=== PATIENT | male | born 1995 | race Caucasian/White ===

== ENCOUNTER 2016-11-05 06:21 | Emergency (ER) | payer SELFPAY ==
[~2016-11-05] VITALS: Ht 167.6 cm; Wt 65.0 kg
[2016-11-05 06:22] VITALS: BP 133/75; PULSE 87; RESP 16; TEMP 99.2; O2SAT 98
[2016-11-05] MEDS ORDERED: SODIUM CHLOR 0.9% 1000 ML INJ 1,000 ML IV SCH (06:35)
--- NOTE | 2016-11-05 06:41 | PD ---
HPI Chief Complaint: Abdominal Pain Time Seen by Provider: 06:35 Travel History International Travel<30 days: No Contact w/Intl Traveler<30days: No Traveled to known affect area: No History of Present Illness HPI 21-year-old male complains of abdominal pain and diarrhea. Patient states the symptoms started last night. Patient states that the abdominal pain cramping pain persistent pain diffuse over the abdomen. Patient denies any pain radiation. Patient denies any dysuria or frequency. Patient denies any back pain. Patient denies any blood or mucus in the stool. PFSH Social History Tobacco Use: No Allergies-Medications (Allergen,Severity, Reaction): Coded Allergies: No Known Allergies (Unverified , 11/05/16) Reported Meds & Prescriptions Reported Meds & Active Scripts Active Zofran Odt (Ondansetron Odt) 4 Mg Tab 4 Mg SL Q6HR PRN Review of Systems General / Constitutional: No: Fever Eyes: No: Visual changes HENT: No: Headaches Cardiovascular: No: Chest Pain or Discomfort Respiratory: No: Shortness of Breath Gastrointestinal: Positive: Diarrhea, Abdominal Pain Genitourinary: No: Dysuria Musculoskeletal: No: Pain Skin: No Rash Neurologic: No: Weakness Psychiatric: No: Depression Endocrine: No: Polydipsia Hematologic/Lymphatic: No: Easy Bruising Physical Exam Narrative GENERAL: Well-nourished, well-developed patient. SKIN: Focused skin assessment warm/dry. HEAD: Normocephalic. EYES: No scleral icterus. No injection or drainage. NECK: Supple, trachea midline. No JVD or lymphadenopathy. CARDIOVASCULAR: Regular rate and rhythm without murmurs, gallops, or rubs. RESPIRATORY: Breath sounds equal bilaterally. No accessory muscle use. GASTROINTESTINAL: Abdomen soft, nondistended. Patient has moderate tenderness on palpation right lower quadrant of the abdomen. No rebound tenderness. No mass. MUSCULOSKELETAL: No cyanosis, or edema. BACK: Nontender without obvious deformity. No CVA tenderness. Data Data Last Documented VS Vital Signs Date Time Temp Pulse Resp B/P Pulse Ox O2 Delivery O2 Flow Rate FiO2 11/05/16 09:07 78 18 124/76 98 11/05/16 06:44 Room Air 11/05/16 06:22 99.2 Orders Complete Blood Count With Diff (11/05/16 06:35) Comprehensive Metabolic Panel (11/05/16 06:35) Urinalysis - C+S If Indicated (11/05/16 06:35) Ct Abd/Pel W Iv Contrast(Rout) (11/05/16 06:35) Iv Access Insert/Monitor (11/05/16 06:35) Ecg Monitoring (11/05/16 06:35) Oximetry (11/05/16 06:35) Ondansetron Inj (Zofran Inj) (11/05/16 06:45) Pantoprazole Inj (Protonix Inj) (11/05/16 06:45) Sodium Chlor 0.9% 1000 Ml Inj (Ns 1000 M (11/05/16 06:35) Dicyclomine Inj (Bentyl Inj) (11/05/16 06:45) Iohexol 350 Inj (Omnipaque 350 Inj) (11/05/16 08:29) Labs Laboratory Tests Test 11/05/16 11/05/16 06:40 07:15 White Blood Count 18.5 TH/MM3 Red Blood Count 4.78 MIL/MM3 Hemoglobin 14.1 GM/DL Hematocrit 41.2 % Mean Corpuscular Volume 86.3 FL Mean Corpuscular Hemoglobin 29.6 PG Mean Corpuscular Hemoglobin 34.3 % Concent Red Cell Distribution Width 13.4 % Platelet Count 296 TH/MM3 Mean Platelet Volume 9.2 FL Neutrophils (%) (Auto) 84.8 % Lymphocytes (%) (Auto) 6.3 % Monocytes (%) (Auto) 8.7 % Eosinophils (%) (Auto) 0.2 % Basophils (%) (Auto) 0.0 % Neutrophils # (Auto) 15.7 TH/MM3 Lymphocytes # (Auto) 1.2 TH/MM3 Monocytes # (Auto) 1.6 TH/MM3 Eosinophils # (Auto) 0.0 TH/MM3 Basophils # (Auto) 0.0 TH/MM3 CBC Comment AUTO DIFF Differential Total Cells 100 Counted Neutrophils % (Manual) 72 % Band Neutrophils % 6 % Lymphocytes % 10 % Monocytes % 12 % Neutrophils # (Manual) 14.4 TH/MM3 Differential Comment FINAL DIFF MANUAL Platelet Estimate NORMAL Platelet Morphology Comment NORMAL Red Cell Morphology Comment NORMAL Sodium Level 138 MEQ/L Potassium Level 4.4 MEQ/L Chloride Level 104 MEQ/L Carbon Dioxide Level 28.1 MEQ/L Anion Gap 6 MEQ/L Blood Urea Nitrogen 15 MG/DL Creatinine 0.93 MG/DL Estimat Glomerular Filtration 102 ML/MIN Rate Random Glucose 90 MG/DL Calcium Level 9.1 MG/DL Total Bilirubin 0.6 MG/DL Aspartate Amino Transf 41 U/L (AST/SGOT) Alanine Aminotransferase 48 U/L (ALT/SGPT) Alkaline Phosphatase 68 U/L Total Protein 8.0 GM/DL Albumin 3.9 GM/DL Urine Color YELLOW Urine Turbidity CLEAR Urine pH 5.5 Urine Specific [place] 1.025 Urine Protein NEG mg/dL Urine Glucose (UA) NEG mg/dL Urine Ketones NEG mg/dL Urine Occult Blood SMALL Urine Nitrite NEG Urine Bilirubin NEG Urine Urobilinogen LESS THAN 2.0 MG/DL Urine Leukocyte Esterase NEG Urine RBC 1 /hpf Urine WBC 1 /hpf Urine Squamous Epithelial <1 /hpf Cells Urine Mucus FEW /lpf Microscopic Urinalysis Comment CULT NOT INDICATED MDM Medical Decision Making Medical Screen Exam Complete: Yes Emergency Medical Condition: Yes Differential Diagnosis Differential diagnosis including gastroenteritis, appendicitis, UTI, pyelonephritis, nephrolithiasis. Narrative Course 21-year-old male with right lower quadrant abdominal pain and diarrhea. Normal saline solution 1 25 cc an hour. Protonix 40 mg IV. Bentyl 20 mg IM. Zofran 4 mg IV. Scripts Ondansetron Odt (Zofran Odt)4 Mg Tab4 Mg SL Q6HR PRN (Nausea/Vomiting) #7 TAB Ref 0 Prov:Donta Reinoso MD 11/05/16 Larry Hess MD November 05, 2016 06:40
[2016-11-05 06:44] VITALS: RESP 16; O2SAT 99
[2016-11-05] MEDS ORDERED: DICYCLOMINE HCL 20 MG/2 ML VIAL IM ONE (06:45)
[2016-11-05] MEDS ORDERED: PANTOPRAZOLE SODIUM 40 MG VIAL IVP ONE (06:45)
[2016-11-05] MEDS ORDERED: ONDANSETRON HCL 4 MG/2 ML VIAL IVP ONE (06:45)
[2016-11-05 07:02] LABS: AUTOMATED NEUTROPHIL # 15.7 TH/MM3 (1.8-7.7); EOSINOPHIL % 0.2 % (0.0-4.0); HEMATOCRIT 41.2 % (39.0-51.0); LYMPH % 6.3 % (9.0-44.0); LYMPHOCYTE # 1.2 TH/MM3 (1.0-4.8); MEAN CELL VOLUME 86.3 FL (80.0-100.0); MEAN CORPUSCULAR HEMOGLOBIN 29.6 PG (27.0-34.0); MEAN CORPUSCULAR HGB CONC 34.3 % (32.0-36.0); MONO % 8.7 % (0.0-8.0); NEUT % 84.8 % (16.0-70.0); PLATELET COUNT 296 TH/MM3 (150-450); RED BLOOD COUNT 4.78 MIL/MM3 (4.50-5.90); RED CELL DISTRIBUTION WIDTH 13.4 % (11.6-17.2); WHITE BLOOD COUNT 18.5 TH/MM3 (4.0-11.0)
[2016-11-05 07:13] LABS: ALKALINE PHOSPHATASE 68 U/L (45-117); TOTAL BILIRUBIN ADULT 0.6 MG/DL (0.2-1.0)
[2016-11-05 07:16] LABS: HEMO FLAGS AUTO DIFF
[2016-11-05 07:19] LABS: ALT (GPT) 48 U/L (12-78); ANION GAP 6 MEQ/L (5-15); AST (GOT) 41 U/L (15-37); BICARBONATE 28.1 MEQ/L (21.0-32.0); BLOOD UREA NITROGEN 15 MG/DL (7-18); CHLORIDE 104 MEQ/L (98-107); GLOMERULAR FILTRATION RATE 102 ML/MIN (>89); SODIUM (NA) 138 MEQ/L (136-145)
[2016-11-05 07:20] LABS: POTASSIUM 4.4 MEQ/L (3.5-5.1)
[2016-11-05 07:33] LABS: BLOOD, URINE SMALL (NEG); GLUCOSE,URINE NEG (NEG); KETONE, URINE NEG (NEG); MUCUS URINE FEW /lpf (OCC); NITRITE,URINE NEG (NEG); PH, URINE 5.5 (5.0-8.5); SQUAMOUS EPITHELIAL CELL URINE <1 /hpf (0-5); URINE COLOR YELLOW (YELLW/STRAW)
[2016-11-05 07:35] LABS: COMMENT (UR) CULT NOT INDICATED; CULTURE IF INDICATED CULT NOT INDICATED
[2016-11-05 07:43] LABS: BANDS 6 % (0-6); NEUTROPHIL # MANUAL DIFF 14.4 TH/MM3 (1.8-7.7); POLYS (SEG NEUTROPHILS) 72 % (16-70); WBC DIFF SAMPLE 100
[2016-11-05 07:44] LABS: PLATELET ESTIMATE SMEAR NORMAL (NORMAL); PLATELET MORPHOLOGY NORMAL (NORMAL); SCAN/DIFF FINAL DIFF MANUAL
[2016-11-05] MEDS ORDERED: IOHEXOL 350 MG/ML 10 ML VIAL (for RAD DIAG) IV ONE (08:29)
--- NOTE | 2016-11-05 08:42 | RADRPT ---
EXAM DATE/TIME: 11/05/2016 08:09 [facility] COMPARISON: No previous studies available for comparison. INDICATIONS : Right lower quadrant pain, nausea, diarrhea. IV CONTRAST: 94 cc Omnipaque 350 (iohexol) IV ORAL CONTRAST: No oral contrast ingested. RADIATION DOSE: 7.57 CTDIvol (mGy) MEDICAL HISTORY : None SURGICAL HISTORY : None. ENCOUNTER: Initial ACUITY: 1 day PAIN SCALE: 6/10 LOCATION: TECHNIQUE: Volumetric scanning of the abdomen and pelvis was performed. Using automated exposure control and ad justment of the mA and/or kV according to patient size, radiation dose was kept as low as reasonably achievable to obtain optimal diagnostic quality images. FINDINGS: LOWER LUNGS: The visualized lower lungs are clear. LIVER: Homogeneous density without lesion. There is no dilation of the biliary tree. No calcified gallston es. SPLEEN: Normal size without lesion. PANCREAS: Within normal limits. KIDNEYS: Normal in size and shape. There is no mass, stone or hydronephrosis. ADRENAL GLANDS: Within normal limits. VASCULAR: There is no aortic aneurysm. BOWEL/MESENTERY: No free intraperitoneal air or fluid. Retrocecal appendix is radiographically normal. There is some m inimal stranding and bowel wall thickening in the mid ascending colon characteristic of a very mild, nonspecific colitis. ABDOMINAL WALL: Within normal limits. RETROPERITONEUM: There is no lymphadenopathy. BLADDER: No wall thickening or mass. REPRODUCTIVE: Within normal limits. INGUINAL: There is no lymphadenopathy or hernia. MUSCULOSKELETAL: Within normal limits for patient age. CONCLUSION: 1. Patient's symptoms may be due to a very mild, nonspecific colitis in the mid ascending colon with some regional bowel wall thickening and pericolonic fatty stranding. 2. Otherwise negative. Patient has a retrocecal appendix which is radiographically normal. Efraín Pena MD on November 05, 2016 at 8:32 Board Certified Radiologist. This report was verified electronically.
[2016-11-05] MEDS ORDERED: ZOFR4TAB3 SL (08:53)
--- NOTE | 2016-11-05 08:53 | PD ---
Physical Exam Date Seen by Provider: November 05, 2016 Time Seen by Provider: 07:00 Narrative Patient initially seen by Dr. Hess, please see previous notes for further information. Signed out to me at 7 AM awaiting CAT scan workup. Apparently has been having diarrhea with nausea and vomiting. Laboratory Tests Test 11/05/16 11/05/16 06:40 07:15 White Blood Count 18.5 TH/MM3 (4.0-11.0) Neutrophils (%) (Auto) 84.8 % (16.0-70.0) Lymphocytes (%) (Auto) 6.3 % (9.0-44.0) Monocytes (%) (Auto) 8.7 % (0.0-8.0) Neutrophils # (Auto) 15.7 TH/MM3 (1.8-7.7) Monocytes # (Auto) 1.6 TH/MM3 (0-0.9) Neutrophils % (Manual) 72 % (16-70) Monocytes % 12 % (0-8) Neutrophils # (Manual) 14.4 TH/MM3 (1.8-7.7) Aspartate Amino Transf 41 U/L (15-37) (AST/SGOT) Urine Occult Blood SMALL (NEG) Urine Mucus FEW /lpf (OCC) Last 24 hours Impressions Abdomen/Pelvis CT 11/05/16 0635 Signed Impressions: Service Date/Time: Saturday, November 05, 2016 08:09 - CONCLUSION: 1. Patient's symptoms may be due to a very mild, nonspecific colitis in the mid ascending colon with some regional bowel wall thickening and pericolonic fatty stranding. 2. Otherwise negative. Patient has a retrocecal appendix which is radiographically normal. Efraín Pena MD Lab work did not indicate significant dehydration or electrolyte abnormalities. He does have leukocytosis. CAT scan shows a normal appendix and appears that he may have some underlying colitis which is consistent with symptoms as well. On reevaluation at 8:50 AM, he is feeling improved, no longer vomiting and pain has subsided. At this point, my plan would be to release him with follow-up to primary care physician. We will give him symptomatic relief or nausea or vomiting. The plan was discussed with the patient and he states understanding. Data Data Last Documented VS Vital Signs Date Time Temp Pulse Resp B/P Pulse Ox O2 Delivery O2 Flow Rate FiO2 11/05/16 06:44 16 99 Room Air 11/05/16 06:22 99.2 87 133/75 Orders Complete Blood Count With Diff (11/05/16 06:35) Comprehensive Metabolic Panel (11/05/16 06:35) Urinalysis - C+S If Indicated (11/05/16 06:35) Ct Abd/Pel W Iv Contrast(Rout) (11/05/16 06:35) Iv Access Insert/Monitor (11/05/16 06:35) Ecg Monitoring (11/05/16 06:35) Oximetry (11/05/16 06:35) Ondansetron Inj (Zofran Inj) (11/05/16 06:45) Pantoprazole Inj (Protonix Inj) (11/05/16 06:45) Sodium Chlor 0.9% 1000 Ml Inj (Ns 1000 M (11/05/16 06:35) Dicyclomine Inj (Bentyl Inj) (11/05/16 06:45) Iohexol 350 Inj (Omnipaque 350 Inj) (11/05/16 08:29) Labs Laboratory Tests Test 11/05/16 11/05/16 06:40 07:15 White Blood Count 18.5 TH/MM3 Red Blood Count 4.78 MIL/MM3 Hemoglobin 14.1 GM/DL Hematocrit 41.2 % Mean Corpuscular Volume 86.3 FL Mean Corpuscular Hemoglobin 29.6 PG Mean Corpuscular Hemoglobin 34.3 % Concent Red Cell Distribution Width 13.4 % Platelet Count 296 TH/MM3 Mean Platelet Volume 9.2 FL Neutrophils (%) (Auto) 84.8 % Lymphocytes (%) (Auto) 6.3 % Monocytes (%) (Auto) 8.7 % Eosinophils (%) (Auto) 0.2 % Basophils (%) (Auto) 0.0 % Neutrophils # (Auto) 15.7 TH/MM3 Lymphocytes # (Auto) 1.2 TH/MM3 Monocytes # (Auto) 1.6 TH/MM3 Eosinophils # (Auto) 0.0 TH/MM3 Basophils # (Auto) 0.0 TH/MM3 CBC Comment AUTO DIFF Differential Total Cells 100 Counted Neutrophils % (Manual) 72 % Band Neutrophils % 6 % Lymphocytes % 10 % Monocytes % 12 % Neutrophils # (Manual) 14.4 TH/MM3 Differential Comment FINAL DIFF MANUAL Platelet Estimate NORMAL Platelet Morphology Comment NORMAL Red Cell Morphology Comment NORMAL Sodium Level 138 MEQ/L Potassium Level 4.4 MEQ/L Chloride Level 104 MEQ/L Carbon Dioxide Level 28.1 MEQ/L Anion Gap 6 MEQ/L Blood Urea Nitrogen 15 MG/DL Creatinine 0.93 MG/DL Estimat Glomerular Filtration 102 ML/MIN Rate Random Glucose 90 MG/DL Calcium Level 9.1 MG/DL Total Bilirubin 0.6 MG/DL Aspartate Amino Transf 41 U/L (AST/SGOT) Alanine Aminotransferase 48 U/L (ALT/SGPT) Alkaline Phosphatase 68 U/L Total Protein 8.0 GM/DL Albumin 3.9 GM/DL Urine Color YELLOW Urine Turbidity CLEAR Urine pH 5.5 Urine Specific [place] 1.025 Urine Protein NEG mg/dL Urine Glucose (UA) NEG mg/dL Urine Ketones NEG mg/dL Urine Occult Blood SMALL Urine Nitrite NEG Urine Bilirubin NEG Urine Urobilinogen LESS THAN 2.0 MG/DL Urine Leukocyte Esterase NEG Urine RBC 1 /hpf Urine WBC 1 /hpf Urine Squamous Epithelial <1 /hpf Cells Urine Mucus FEW /lpf Microscopic Urinalysis Comment CULT NOT INDICATED MDM Medical Record Reviewed: Yes Supervised Visit with JUDY: No Diagnosis Primary Impression: Colitis Med/Other Pt SpecificInfo: Prescription(s) given Scripts Ondansetron Odt (Zofran Odt)4 Mg Tab4 Mg SL Q6HR PRN (Nausea/Vomiting) #7 TAB Ref 0 Prov:Donta Reinoso MD 11/05/16 Disposition: 01 DISCHARGE HOME Condition: Stable Donta Reinoso MD November 05, 2016 08:53
[2016-11-05 09:07] VITALS: BP 124/76
== END 2016-11-05 09:48 | disposition home or self-care (01) ==
LOC: NEPC 06:21
DX: K52.9 Noninfective gastroenteritis and colitis, unspecified (principal)
CPT/HCPCS: 74177; 80053; 81001; 85007; 85027; 96361; 96372; 96374; 96375; 99284; C9113; J0500; J2405; J7030; Q9967